=== PATIENT | female | born 1990 | race Caucasian/White ===

== ENCOUNTER 2021-03-25 08:39 | Emergency (ER) | payer MEDICARE, SELFPAY ==
[2021-03-25 08:40] VITALS: BP 141/102; PULSE 130; RESP 12; TEMP 37.3; O2SAT 95; BMI 38.2
--- NOTE | 2021-03-25 08:56 | RAD_ITS ---
STUDY: X-RAY CHEST REASON FOR EXAM: Female, 30 years old. Cough fever . Shortness of breath and headaches. TECHNIQUE: Single AP portable view of the chest. COMPARISON: None. FINDINGS: Infiltration in the right lower lobe. There is no demonstrated pleural abnormality. Normal size heart. Normal mediastinum and nini. Normal visualized pulmonary arteries. Normal visualized aortic arch and descending thoracic aorta. Normal visualized thoracic spine. Normal visualized ribs, clavicles, and shoulders. There is no demonstrated abnormality of the visualized soft tissue structures of the upper abdomen. RAD/Chest 1 View (Portable) IMPRESSION: Right lower lobe infiltrate. Electronically Signed: Harley Hanna MD at 9:50 EDT , Service support ,
[2021-03-25 08:57] VITALS: BP 141/102; PULSE 130; RESP 16; TEMP 37.3; O2SAT 95
--- NOTE | 2021-03-25 09:01 | EDS_ITS ---
HPI History of Present Illness Chief Complaint: Fever Narrative Narrative: Patient presents complaining of fever body aches and headache since Monday slight cough not been vaccinated no exposures to Covid, she has chronic history of migraine headaches this exacerbated this illness she has prior evaluation for the headache no history of brain tumor brain aneurysm, bowel and bladder habits unremarkable does not believe she is PFSH PFSH Home Medications albuterol sulfate [Proventil HFA] 2 puff INHALATION Q6H PRN #8.5 g 03/25/21 [Rx Last Taken Unknown] dexamethasone 6 mg PO DAILY #7 tab 03/25/21 [Rx Last Taken Unknown] Allergy/AdvReac Type Severity Reaction Status Date / Time amoxicillin Allergy Hives Verified 03/25/21 08:42 Surgical History (Updated 03/25/21 @ 08:59 by Juanis Loaiza) History of Social History Smoking Status: Never smoker ROS ROS ED Constitutional Constitutional ED: Reports fever(s), subjective, sweats and other; Denies chills or weight loss Eyes Eyes: Denies blurry vision or change in vision ENT ENT ED: Denies ear pain Cardiovascular Cardiovascular: Denies chest pain or palpitations Respiratory/Chest Respiratory/Chest: Reports cough; Denies dyspnea Gastrointestinal Gastrointestinal: Denies abdominal pain, nausea or vomiting Genitourinary Genitourinary ED: Denies dysuria or hematuria Musculoskeletal Musculoskeletal: Reports myalgias; Denies arthralgias Integumentary Reports rash; Denies abscess Neurologic Neurologic: Reports headache(s); Denies weakness Psychiatric Psychiatric: Denies anxiety or depression Endocrine Endocrinology: Denies polydipsia or polyuria Allergic/Immunologic Allergic/Immunologic ED: Denies urticaria EXAM Physical Exam Const Vital Signs: 03/25/21 08:40 03/25/21 08:57 Temperature 99.2 F H 99.2 F H Temperature Source Oral Temporal Pulse Rate 130 H 130 H Respiratory Rate 12 16 Respiratory Effort Short of Breath Respiratory Pattern Normal Blood Pressure 141/102 H 141/102 H Blood Pressure Mean 115 115 Pulse Ox 95 95 Oxygen Delivery Method Room Air Room Air Positive well developed General Appearance ED: well developed HEENT Reports normocephalic Negative for trauma Eyes EOMs intact bilaterally Neck supple Chest Wall inspection of chest normal Resp normal respiratory effort Cardio regular rate GI non-tender and non-distended Back/Spine Back/Spine Narrative: unremarkable Extremity normal to inspection Neuro oriented x3 and CN's II-XII intact bilaterally Sensorium / Orientation: alert Psych mental status grossly normal Skin no rashes or lesions noted MDM MDM MDM Narrative Medical decision making narrative: The patient is in no distress her temperature is 99 her neck is supple her nose is slightly congested throat is clear lungs are clear heart tones are unremarkable abdomen soft nontender pulse ox 95% on room air her chief complaint is the fever cough body ache headache she will undergo ED evaluation with labs CT headache management IV fluids Patient CT showed some air-fluid levels maxillary sinus sphenoid sinus, chest x- ray right lower lobe infiltrate, Covid screening positive, all labs negative, after fluids went back to reassess her headache is gone she is feeling better discussed the fact that she is caused Covid positive reviewed the data she is 5 days into her illness discussed the fact that given that she is not hypoxic she is otherwise healthy she is likely to do well at home discussed monoclonal antibody therapy she is agreeable to that and we did make the referral and fill out the form,, Explained that if she should get more short of breath she should return immediately to the emergency part for evaluation the concept of self isolation fluids, As an aside her spouse was in the room with her discussed vaccination with him he adamantly refused vaccination saying that the vaccine has not been studied At this time she is comfortable discharge home she will return for change in symptoms she was given Decadron here Decadron for home use Final impression COVID-19 infection pneumonia Lab Data Labs: Laboratory Results - last 24 hr 03/25/21 03/25/21 09:24 09:24 WBC 3.3 L RBC 5.60 H Hgb 14.4 Hct 43.5 MCV 77.7 L MCH 25.7 L MCHC 33.1 RDW Std Deviation 39.8 RDW Coeff of Joe 14.2 Plt Count 184 MPV 10.8 Immature Gran % (Auto) 0.300 Neut % (Auto) 58.8 Lymph % (Auto) 33.6 [place] % (Auto) 7.0 Eos % (Auto) 0.0 Baso % (Auto) 0.3 Absolute Neuts (auto) 1.9 L Absolute Lymphs (auto) 1.10 Nucleated RBC % 0 Sodium 135 L Potassium 3.7 Chloride 104 Carbon Dioxide 23.0 Anion Gap 8 BUN 8 Creatinine 0.88 Estim Creat Clear Calc 84.88 Est GFR (MDRD) Af Amer 97 Est GFR (MDRD) Non-Af 80 BUN/Creatinine Ratio 9.0 L Glucose 105 Calcium 8.4 L Radiography Diagnostic Testing: Clinical Impression(s) from Imaging Studies Chest X-Ray 03/25/21 08:56 IMPRESSION: Right lower lobe infiltrate. Electronically Signed: Harley Hanna MD at 9:50 EDT , Service support , Brain CT 03/25/21 09:32 IMPRESSION: Air-fluid level in the sphenoid sinus. Mucosal thickening of the maxillary sinuses bilaterally. Electronically Signed: Harley Hanna MD at 9:50 EDT , Service support , Discharge Plan Triage Chief Complaint: Fever ED Provider: Antonio Oakley Dx/Rx/DC Orders Clinical Impression: COVID-19 Instructions: Coronavirus Disease 2019 (COVID-19): Overview, Coronavirus Disease 2019 (COVID-19): Caring for Yourself or Others Prescriptions: New albuterol sulfate [Proventil HFA] 90 mcg/actuation HFA aerosol inhaler 2 puff inhalation Q6H PRN (Reason: shortness of breath or wheezing) Qty: 8.5 RF: 0 dexamethasone 6 mg tablet 6 mg PO DAILY Qty: 7 RF: 0 Other Ambulatory Orders: COVID Outpatient Monoclonal Antibody Referral (Routine) Timeframe: 1 Day Facility: [facility] - Location: [facility] Ordered By: Dr. Antonio Oakley Primary Care Provider: Care Physician,No Primary Referrals: Jazmyn Orta [NON-STAFF] - Care Physician,No Primary [Primary Care Provider] -
[2021-03-25] MEDS: DiphenhydrAMINE 50 MG/ML Syringe 25 MG IV (09:16)
[2021-03-25] MEDS: 0.9% Normal Saline 1,000 ML 1000 ML IV (09:16)
[2021-03-25] MEDS: proCHLORPERazine 10 MG/2 ML Vial IV (09:16)
--- NOTE | 2021-03-25 09:32 | CT_ITS ---
STUDY: CT BRAIN WITHOUT CONTRAST REASON FOR EXAM: Female, 30 years old. [place] RADIATION DOSAGE (If Supplied By Facility): CTDIvol = ( 44.99 ) mGy, DLP = ( 846.73 ) mGycm TECHNIQUE: Transaxial CT imaging of the brain was performed without administration of intravenous contrast material. Individualized dose optimization techniques were used for this CT. COMPARISON: No relevant priors. FINDINGS: Normal soft tissue structures. Normal calvarium. Normal size ventricles and extra-axial spaces for the patient''s age. Normal white matter tracts of the cerebral hemispheres. Normal basal ganglia and thalami. Normal brainstem. Normal cerebellum. There is no intracranial hemorrhage. There are no findings of an acute ischemic infarction. Minimal mucosal thickening of the maxillary sinuses bilaterally. Air-fluid level in the sphenoid sinus. CT/Brain/Head without Contrast IMPRESSION: Air-fluid level in the sphenoid sinus. Mucosal thickening of the maxillary sinuses bilaterally. Electronically Signed: Harley Hanna MD at 9:50 EDT , Service support ,
[2021-03-25 09:36] LABS: Absolute Neutrophil Count 1.9 X10^3/uL (2.0-7.7); Basophil# 0.01 X10^3/uL; Basophil% 0.3 % (0-1); Hematocrit 43.5 % (37-47); Hemoglobin 14.4 g/dL (12.0-15.0); Lymphocyte % 33.6 % (19-41); Mean Corp Hgb Conc 33.1 g/dL (32-36); Mean Corpuscular Hgb 25.7 pg (27.0-32.0); Mean Corpuscular Volume 77.7 fL (81-99); Mean Platelet Vol. 10.8 fl (6.2-12.0); Monocyte# 0.23 X10^3/uL; NRBC Flagged by Analyzer 0 % (0-5); Neutrophil # 1.92 X10^3/uL (2.7-7.7); Neutrophil % 58.8 % (47-70); Platelet Count 184 K/mm3 (150-450); RBC Distribution Width CV 14.2 % (11.6-14.6); RBC Distribution Width SD 39.8 fl (35.1-43.9); White Blood Count 3.3 K/mm3 (4.4-11.0)
[2021-03-25 09:49] LABS: Anion Gap 8 (5-15); BUN 8 mg/dL (7-18); Calcium,Total 8.4 mg/dL (8.5-10.1); Chloride 104 mmol/L (98-107); Creatinine, Serum 0.88 mg/dL (0.55-1.02); EST Glomerular Filtration Rate 80 mL/min (>60); Est Glom Filt Rate - Afr Amer 97 mL/min (>60); Estimated Creatinine Clearance 84.88 ml/min; Glucose 105 mg/dL (74-106); Potassium 3.7 mmol/L (3.5-5.1); Sodium Level 135 mmol/L (136-145)
[2021-03-25] MEDS: dexAMETHasone 10 MG/ML Vial IV (11:15)
[2021-03-25 11:16] VITALS: BP 135/74; PULSE 62; RESP 15; O2SAT 97
== END 2021-03-25 11:18 | disposition home or self-care (01) ==
LOC: ED 09:19
PROVIDERS: Emergency Provider Emergency Medicine
DX: U07.1 COVID-19 (principal); J12.82 Pneumonia due to coronavirus disease 2019
CPT/HCPCS: 70450; 71045; 80048; 85025; 87426; 96361; 96374; 96375; 99284; J7030; A4216

== ENCOUNTER 2023-07-08 21:20 | Emergency (ER) | payer SELFPAY ==
[2023-07-08 21:22] VITALS: BP 145/90; PULSE 119; RESP 20; TEMP 36.1; O2SAT 100; BMI 32.8
--- NOTE | 2023-07-08 21:41 | EX.ED.VIS.HA ---
HPI History of Present Illness Chief Complaint: Headache Informant: patient Onset/Context/Timing Onset: Days (2) Context: Sudden Timing: Continuous Quality -Headache: Positive for Similar Prior Headaches Location: Generalized Worsened by: Light Relieved by: Nothing Associated Symptoms/Injury Associated Symptoms: Positive for Fever, Nausea, Preceding Aura and Photophobia; Negative for Vomiting, Sore Throat, Sinus Pressure, Numbness, Tingling, Visual Changes, Blurred Vision or Visual Loss Injury - ENRIQUEZ: Negative for Direct Trauma Narrative Narrative: Patient presents with a headache that has been getting worse over the past 2 days. Patient states this is similar to prior migraine headaches but much worse. Patient states that it has been constant. Patient states it is worse with light. Patient admits to some nausea. Patient admits to subjective fevers and chills. Patient admits to some preceding auras. Patient admits to some pain radiating into her neck. Patient also states she feels short of breath at times. Patient states her headache is diffuse across her entire head. [facility] Medical History (Updated 07/08/23 @ 22:[address] Kenneth Lubin DO) Migraine headache Home Medications albuterol sulfate 90 mcg/actuation aerosol inhaler (Proventil HFA) 2 puff inhalation Q6H PRN shortness of breath or wheezing #8.5 grams 03/25/21 [Rx Last Taken Unknown] dexamethasone 6 mg tablet 6 mg PO DAILY #7 tabs 03/25/21 [Rx Last Taken Unknown] Allergy/AdvReac Type Severity Reaction Status Date / Time amoxicillin Allergy Hives Verified 07/08/23 21:22 Surgical History History of Social History Smoking Status: Never smoker ROS ROS ED Constitutional Constitutional ED: Reports chills, fever(s) and subjective Eyes Eyes: Denies blurry vision or change in vision ENT ENT ED: Denies rhinorrhea or sore throat Cardiovascular Cardiovascular: Denies chest pain or palpitations Respiratory/Chest Respiratory/Chest: Reports dyspnea; Denies cough Gastrointestinal Gastrointestinal: Reports nausea; Denies vomiting Genitourinary Genitourinary ED: Denies dysuria or hematuria Musculoskeletal Musculoskeletal: Reports neck pain; Denies back pain Integumentary Denies abscess or rash Neurologic Neurologic: Reports headache(s); Denies weakness Allergic/Immunologic Allergic/Immunologic ED: Denies mouth swelling or urticaria EXAM Physical Exam Const Vital Signs: 07/08/23 21:22 Temperature 97 F L Temperature Source Temporal Pulse Rate 119 H Respiratory Rate 20 H Blood Pressure 145/90 H Blood Pressure Mean 108 Pulse Ox 100 Oxygen Delivery Method Room Air Positive well nourished and well developed General Appearance ED: well developed and NAD HEENT Reports moist mucous membranes atraumatic Neck supple, no meningeal signs and no JVD Lymph Lymphatic Narrative: There is some postauricular lymphadenopathy noted. These are tender to palpation. Resp normal respiratory effort and clear to auscultation bilaterally Cardio regular rhythm Rate: tachycardic GI non-tender and non-distended Palpation: soft Extremity normal to inspection and full ROM Neuro oriented x3, CN's II-XII intact bilaterally and no sensory deficits noted Darinel Coma Scale: document GCS findings Spontaneous Obeys Commands Oriented 15 Sensorium / Orientation: awake and alert Speech: speech normal Motor Exam: strength 5/5 throughout Psych mental status grossly normal MDM MDM MDM Narrative Medical decision making narrative: Differential diagnosis includes migraine headache, tension headache, cluster headache, viral illness, and sinusitis. CT scan of the brain will be obtained to assess for intracranial bleeding and sinusitis. CBC will be obtained to assess for leukocytosis and anemia. Basic metabolic profile will be obtained to assess for electrolyte abnormality and renal function. Lab Data Attestation: I reviewed the patient's lab results. Lab results narrative: CBC was reviewed. White blood cell count was slightly low at 3.8. The remainder was essentially within normal limits. Basic metabolic profile was reviewed. Potassium was slightly low at 3.2. The remainder was within normal limits. Labs: Laboratory Results - last 24 hr 07/08/23 21:42 WBC 3.8 L RBC 5.03 Hgb 12.4 Hct 37.8 MCV 75.1 L MCH 24.7 L MCHC 32.8 RDW Std Deviation 37.2 RDW Coeff of Joe 13.9 Plt Count 218 MPV 10.3 Immature Gran % (Auto) 0.300 Neut % (Auto) 50.4 Lymph % (Auto) 29.1 [place] % (Auto) 16.5 H Eos % (Auto) 3.2 Baso % (Auto) 0.5 Absolute Neuts (auto) 1.9 L Absolute Lymphs (auto) 1.09 Nucleated RBC % 0 Sodium 134 L Potassium 3.2 L Chloride 105 Carbon Dioxide 22.0 Anion Gap 7 BUN 13 Creatinine 0.76 Estim Creat Clear Calc 118.61 Est GFR (MDRD) Af Amer 115 Est GFR (MDRD) Non-Af 95 BUN/Creatinine Ratio 17.2 Glucose 96 Calcium 8.7 Radiography Diagnostic Testing: Clinical Impression(s) from Imaging Studies Brain CT 07/08/23 21:50 IMPRESSION: Normal unenhanced CT scan of the brain. Electronically Signed: Dino Ferreira MD at 22:32 EST , CT scan of the brain was obtained. There is no acute intracranial abnormality. This was interpreted by the radiologist and was also independently reviewed by myself. Treatment and Re-Evaluation Narrative: Patient was given IV fluids, Reglan, and Benadryl. Patient was feeling better on reevaluation. Patient was advised of her findings. Patient was instructed to rest in a dark quiet room. Patient was instructed to follow-up with her primary care physician in 5 to 7 days. Patient understood and was agreeable with the plan. All questions were answered. Discharge Plan Triage Chief Complaint: Headache ED Provider: Kenneth Lubin Dx/Rx/DC Orders Clinical Impression: Migraine headache, Viral illness Instructions: ED, Migraine (Classical) Prescriptions: No Action albuterol sulfate [Proventil HFA] 90 mcg/actuation HFA aerosol inhaler 2 puff inhalation Q6H PRN (Reason: shortness of breath or wheezing) Qty: 8.5 0RF dexamethasone 6 mg tablet 6 mg PO DAILY Qty: 7 0RF Primary Care Provider: Care Physician,No Primary Referrals: Care Physician,No Primary [Primary Care Provider] - Disposition Disposition: Home, Self Care
--- OUTSIDE RECORDS SUMMARY | 2023-07-08 21:46 | XMS RPT_ITS | CCD ---
Author Name Unknown Address [id number] [place] [address] Organization [facility] Care Team Providers Care Roll Dough Divider Name Role Phone JOSHUA BERNARD (YAJAIRA) Unavailable Unavai lable MCINTOSH, SOHAN Unavailable Unavailable PK CHEEK Unavailable Unavailable NO PRIMARY CARE, Unavailable Unavailable EHRENBERG BUCHNER, STEVO Unavailable Unavai lable BELLANTE, KELI M Unavailable Unavailable NO PRIMARY CARE, MD Unavailable Unavailable EHRENBERG BUCHNER, STEVO Unavailable Unavai lable EMILI, ANTON Unavailable Unavailable NO PRIMARY CARE, MD Unavailable Unavailable MCINTOSH, SOHAN Unavailable Unavailable EMILI, ANTON Unavailable Unavailable NO PRIMARY CARE, Unavailable Unavailable CLARISSA BEACH Unavailable Unavailable EMILI, ANTON Unavailable Unavailable NO PRIMARY CARE, MD Unavailable Unavailable MCINTOSH, SOHAN Unavailable Unavailable BELLANTE, KELI M Unavailable Unavailable NO PRIMARY CARE, MD Unavailable Unavailable EHRENBERG BUCHNER, STEVO Unavailable Unavai lable BELLANTE, KELI M Unavailable Unavailable NO PRIMARY CARE, MD Unavailable Unavailable Lyly Merida Unavailable Unavailable PROVIDER, UNKNOWN Unavailable Unavailable No, PCP Unavailable Unavailable PROVIDER, UNKNOWN Unavailable Unavailable No, PCP Unavailable Unavailable Lyly Merida Unavailable Unavailable Lyly Merida Unavailable Unavailable PROVIDER, UNKNOWN Unavailable Unavailable No, PCP Unavailable Unavailable Allergies Allergy Classification Reported Allergen(s) Allergy Type Date of Onset Reaction(s) Facility (1 source) amoxicillin; Translations: [AMOXICILLIN] Drug Allergy 07-05-2015 [facility] Repository Problems Problem Classification Problem Date Documented Date Episodic/Chronic Diabetes mellitus without complication (2 sources) Type 2 diabetes mellitus without complications; Translations: [Type 2 diabetes mellitus without complications] Onset: 01-03-2018 Chronic Diabetes or abnormal glucose tolerance complicating ; childbirth; or the puerperium (2 sources) Unspecified pre-existing diabetes mellitus in , third trimester; Translations: [Unsp pre-existing diabetes in , third trimester] Onset: 01-03-2018 Chronic Diabetes or abnormal glucose tolerance complicating ; childbirth; or the puerperium (2 sources) Gestational diabetes mellitus in childbirth, diet controlled; Translations: [Gestational diabetes mellitus in childbirth, diet controlled] Onset: 01-05-2018 Episodic Early or threatened labor (2 sources) False labor at or after 37 completed weeks of gestation; Translations: [False labor at or after 37 completed weeks of gestation] Onset: 01-03-2018 Episodic Normal and/or delivery (4 sources) Encounter for full-term uncomplicated delivery; Translations: [Single live ] Onset: 01-05-2018 Episodic Other complications of (2 sources) Maternal care for excessive growth, third trimester, not applicable or unspecified; Translations: [Maternal care for excess growth, third trimester, unsp] Onset: 01-05-2018 Episodic Umbilical cord complication (2 sources) Velamentous insertion of umbilical cord, third trimester; Translations: [Velamentous insertion of umbilical cord, third trimester] Onset: 01-05-2018 Episodic Unclassified (2 sources) 38 weeks gestation of ; Translations: [38 weeks gestation of ] Onset: 01-05-2018 Unclassified (2 sources) Gestational [-induced] hypertension without significant proteinuria, complicating childbirth; Translations: [Gestatnl htn without significant protein, comp childbirth] Onset: 01-05-2018 Results Test Name Value Interpretation Reference Range Facil ity Encounters Encounter Date Encounter Type Care Provider Facility Start: 01-05-2018 Evaluation and management of inpatient Lyly Merida [facility] Start: 01-03-2018 Patient encounter STEVO HARVEY [facility] Start: 01-03-2018 Patient encounter UNKNOWN PROVIDER S [facility] Start: 12-29-2017 Patient encounter Lyly Merida [facility] Start: 12-05-2017 Patient encounter SOHAN MCINTOSH [facility] Start: 11-07-2017 Patient encounter CLARISSA BEACH [facility] Start: 2017 End: 2017 Patient encounter SOHAN MCINTOSH [facility] Start: 09-11-2017 End: 09-11-2017 Patient encounter STEVO URIBE [facility] Start: 08-28-2017 Patient encounter STEVO LANGSTON [facility] Start: 06-15-2017 Patient encounter SOHAN MCINTOSH [facility] Start: 01-20-2017 Joy BERNARD (PA-C ) [facility] Payers Date Payer Category Payer Policy ID Medicaid [id number] Medicaid [id number] Medicaid Summary Purpose Family History No Family History Records FoundNo Family History Records FoundNo Family History Records FoundNo Family History Records Found Advance Directives No Advanced Directives Records FoundNo Advanced Directives Records FoundNo Advanced Directives Records FoundNo Advanced Directives Records Found Additional Source Comments INFORMATION SOURCE (unrecogn ized section and content) DATE CREATED AUTHOR AUTHOR'S ORGANIZ ATION 01/04/2018 [facility] DATE CREATED AUTHOR AUTHOR'S ORGANIZ ATION 01/11/2018 [facility] DATE CREATED AUTHOR AUTHOR'S ORGANIZ ATION 08/16/2019 [facility] FOR RECORDS PERTAINING TO PATIENTS WHO ARE OR HAVE BEEN ENROLLED IN A CHEMICAL DEPENDENCY/SUBSTANCEABUSE PROGRAM, SOME INFORMATION MAY BE OMITTED. This clinical summary was aggregated from multiple sources. Caution should be exercised in using it in the provision of clinical care. This summary normalizes information from multiple sources, and as a consequence, information in this document may materially change the coding, format and clinical context of patient data. In addition, data may be omitted in some cases. CLINICAL DECISIONS SHOULD BE BASED ON THE PRIMARY CLINICAL RECORDS. [facility]. provides no warranty or guarantee of the accuracy or completeness of information in this document.
--- NOTE | 2023-07-08 21:50 | CT_ITS ---
STUDY: CT BRAIN WITHOUT CONTRAST REASON FOR EXAM: Female, 32 years old. [place] RADIATION DOSAGE (If Supplied By Facility): CTDIvol = ( 44.99 ) mGy, DLP = ( 812.98 ) mGycm TECHNIQUE: Transaxial CT imaging of the brain was performed without administration of intravenous contrast material. Individualized dose optimization techniques were used for this CT. COMPARISON: 03/25/2021 FINDINGS: Normal soft tissue structures. Normal calvarium. Normal size ventricles and extra-axial spaces for the patient''s age. Normal white matter tracts of the cerebral hemispheres. Normal basal ganglia and thalami. Normal brainstem. Normal cerebellum. There is no intracranial hemorrhage. There are no findings of an acute ischemic infarction. Chronic sinusitis of the left maxillary sinus, otherwise negative visualized paranasal sinuses. CT/Brain/Head without Contrast IMPRESSION: Normal unenhanced CT scan of the brain. Electronically Signed: Dino Ferreira MD at 22:32 EST ,
[2023-07-08] MEDS: 0.9% Normal Saline (1000mL) 1,000 ML 999 ML IV (22:04)
[2023-07-08] MEDS: Metoclopramide 10 MG/2 ML Vial IV (22:04)
[2023-07-08] MEDS: DiphenhydrAMINE 50 MG/ML Syringe 25 MG IV (22:04)
[2023-07-08 22:16] LABS: Absolute Lymphocyte Count 1.09 X10^3/uL (0.83-4.51); Absolute Neutrophil Count 1.9 X10^3/uL (2.0-7.7); Basophil# 0.02 X10^3/uL; Basophil% 0.5 % (0-1); Eosinophil# 0.12 X10^3/uL; Eosinophils% 3.2 % (0-5); Hematocrit 37.8 % (37-47); Hemoglobin 12.4 g/dL (12.0-15.0); Lymphocyte # 1.09 X10^3/ul (0.83-4.51); Lymphocyte % 29.1 % (19-41); Mean Corp Hgb Conc 32.8 g/dL (32-36); Mean Corpuscular Hgb 24.7 pg (27.0-32.0); Mean Corpuscular Volume 75.1 fL (81-99); Mean Platelet Vol. 10.3 fl (6.2-12.0); Monocyte# 0.62 X10^3/uL; Monocyte% 16.5 % (0-10); NRBC Flagged by Analyzer 0 % (0-5); Neutrophil # 1.89 X10^3/uL (2.7-7.7); Neutrophil % 50.4 % (47-70); Platelet Count 218 K/mm3 (150-450); RBC Distribution Width CV 13.9 % (11.6-14.6); RBC Distribution Width SD 37.2 fl (35.1-43.9); Red Blood Count 5.03 M/mm3 (4.2-5.4); White Blood Count 3.8 K/mm3 (4.4-11.0)
[2023-07-08 22:31] LABS: Anion Gap 7 (5-15); BUN 13 mg/dL (7-18); BUN/Creat Ratio 17.2 RATIO (10-20); Calcium,Total 8.7 mg/dL (8.5-10.1); Chloride 105 mmol/L (98-107); Creatinine, Serum 0.76 mg/dL (0.55-1.02); EST Glomerular Filtration Rate 95 mL/min (>60); Est Glom Filt Rate - Afr Amer 115 mL/min (>60); Estimated Creatinine Clearance 118.61 ml/min; Glucose 96 mg/dL (74-106); Potassium 3.2 mmol/L (3.5-5.1); Sodium Level 134 mmol/L (136-145)
[2023-07-08 23:33] VITALS: BP 115/68; PULSE 62; RESP 16; O2SAT 97
== END 2023-07-08 23:35 | disposition home or self-care (01) ==
PROVIDERS: Emergency Provider Emergency Medicine; Visit Provider Emergency Medicine
DX: G43.909 Migraine, unspecified, not intractable, without status migrainosus (principal); B34.9 Viral infection, unspecified
CPT/HCPCS: 70450; 80048; 85025; 96361; 96374; 96375; 99284; J7030